=== PATIENT | female | born 1985 | race Caucasian/White ===

== ENCOUNTER 2024-11-06 22:06 | Emergency (ER) | payer MEDICAID ==
[~2024-11-06] VITALS: Ht 165.1 cm; Wt 97.3 kg
[2024-11-07 00:25] LABS: Hepatitis B Surface Antibody Negative (Negative)
[2024-11-07 00:38] LABS: Hepatitis B Surface Antigen Negative (Negative)
--- NOTE | 2024-11-07 02:32 | ED.PDOC ---
History of Present Illness EXP HPI Comments THIS IS A 39-YEAR-OLD FEMALE PATIENT PRESENTS TO THE ED POST EXPOSURE NEEDLE STICK. PATIENT STATES SHE ACTUALLY POKED HERSELF WITH AN INSULIN NEEDLE IN THE TIP OF HER LEFT HAND 4TH DIGIT. HE REPORTS SHE PROMPTLY SQUEEZED IT AND CLEANED IT. SHE DOES NOTE THAT THE PATIENT STATED THAT HE HAS HISTORY OF HEPATITIS-C. HER EMPLOYER IS GETTING PATIENT'S BLOOD WORK. DENIES ANY OTHER SYMPTOMS OR CONCERNS. Chief Complaint: Post Exposure Time Seen by MD: 22:08 Primary Care Provider: CORRINA Reviewed Notes: Nurses Notes, Medications, Allergies Allergies: Coded Allergies: Penicillins (Verified Allergy, Unknown, 11/12/15) Information Source: Patient Mode of Arrival: Ambulatory Past Medical History PAST MEDICAL HISTORY: Denies Surgical History: Denies all surgeries OCCUPATIONAL HEALTH SPECIALIST History: No Pertinent OCCUPATIONAL HEALTH SPECIALIST History Family History Family History: Unobtainable Social History Smoker: Non-Smoker Alcohol: Denies ETOH Use Drugs: Denies Drug Use Lives In: Home Constitutional: denies: chills, diaphoresis, fatigue, fever, malaise, sweats, weakness, others EENTM: denies: blurred vision, double vision, ear bleeding, ear discharge, ear drainage, ear pain, ear ringing, eye pain, eye redness, hearing loss, mouth pain, mouth swelling, nasal discharge, nose bleeding, nose congestion, nose pain, photophobia, tearing, throat pain, throat swelling, voice changes, others Respiratory: denies: cough, hemoptysis, orthopnea, SOB at rest, shortness of breath, SOB with excertion, stridor, wheezing, others Cardiovascular: denies: chest pain, dizzy spells, diaphoresis, Dyspnea on exertion, edema, irregular heart beat, left arm pain, lightheadedness, palpitations, PND, syncope, others Gastrointestinal: denies: abdomen distended, abdominal pain, blood streaked bowels, constipated, diarrhea, dysphagia, difficulty swallowing, hematemesis, melena, nausea, poor appetite, poor fluid intake, rectal bleeding, rectal pain, vomiting, others Genitourinary: denies: abnormal vagina bleeding, burning, dyspareunia, dysuria, flank pain, frequency, hematuria, incontinence, pain, , vagina discharge, urgency, others Neurological: denies: dizziness, fainting, headache, left sided numbness, left sided weakness, numbness, paresthesia, pre-existing deficit, right sided numbness, right sided weakness, seizure, speech problems, tingling, tremors, weakness, others Musculoskeletal: denies: back pain, gout, joint pain, joint swelling, muscle pain, muscle stiffness, neck pain, others Integumetry: reports: wounds (LEFT HAND 4TH INDEX FINGER); denies: bruises, change in color, change in hair/nails, dryness, laceration, lesions, lumps, rash, others Allergic/Immunocompromised: denies: Difficulty Healing, Frequent Infections, Hives, Itching, others Hematologic/Lymphatic: denies: anemia, blood clots, easy bleeding, easy bruising, swollen glands, others Endocrine: denies: excessive hunger, excessive sweating, excessive thirst, excessive urination, flushing, intolerance to cold, intolerance to heat, unexplained weight gain, unexplained weight loss, others Psychiatric: denies: anxiety, bipolar disorder, depression, hopeless, panic disorder, schizophrenia, sleepless, suicidal, others Physical Exam General Appearance: No Apparent Distress, Normal HEENT: Pharynx Normal Neck: Full Range of Motion, Non-Tender Respiratory: Chest Non-Tender, Lungs Clear, No Respiratory Distress, Normal Breath Sounds Cardiovascular: No Murmur, Normal Peripheral Pulses, Regular Rate/Rhythm Breast Exam: Deferred Gastrointestinal: No Organomegaly, Non Tender, No Pulsatile Mass, Normal Bowel Sounds, Soft Genitalia: Deferred Pelvic: Deferred Rectal: Deferred Extremities: Normal capillary refill, Normal inspection, Normal range of motion, Non-tender, No pedal edema Musculoskeletal : Apperance: Normal Neurologic: Alert, student counsellor II-XII nml as Tested, No Motor Deficits, Normal Affect, Normal Mood, No Sensory Deficits Cerebellar Function: Normal Reflexes: Normal Skin: Dry, Normal Color, Warm, Wounds (NO NOTED BLEEDING OR PUNCTURE WOUND TO LEFT HAND 4TH DIGIT.) Lymphatic: No Adenopathy Was a procedure done? Was a procedure done?: No Differential Diagnosis (EXP) Differential Diagnosis: Body fluid exposure, Infect. Disease exposure, Needle stick exposure X-Ray, Labs, Meds, VS Vital Signs Date Time Temp Pulse Resp B/P (MAP) Pulse Ox O2 Delivery O2 Flow Rate FiO2 11/07/24 00:33 65 18 100 Room Air 11/07/24 00:33 98.2 65 18 151/87 (108) 100 98.2 11/06/24 22:15 99.2 77 18 160/92 (114) 98 99.2 Lab Test 11/06/24 23:20 Range/Units Hepatitis B Surface Antigen Negative Negative Hepatitis B Surface Antibody Negative Negative Hepatitis C Antibody Negative Negative HIV (1&2) Antibody Negative Negative X-Ray, Labs, Meds, VS Comment WOUND HEALED. BASELINE LABS ORDERED AND OBTAINED. NEGATIVE EXPOSURE PANEL. PATIENT ADVISED TO FOLLOW UP WITH HER EMPLOYER FOR REPEAT TESTING SCHEDULE. RETURN PRECAUTIONS GIVEN PATIENT INDICATES UNDERSTANDING. Time of 1ST Reevaluation: 00:02 Reevaluation 1ST: Unchanged Patient Education/Counseling: Diagnosis, Treatment, Prognosis, Need For Follow Up Family Education/Counseling: No Family Present Departure 1 Departure Time of Disposition: 02:32 Impression: Primary Impression: Needlestick injury accident with exposure to body fluid Disposition: 01 HOME / SELF CARE / HOMELESS Condition: Stable Discharged With: Self Critical Care Note Critical Care Time?: No Stability Stability form required: NICOL Arthur November 07, 2024 02:32
[2024-11-07 02:57] VITALS: BP 132/88; PULSE 60; RESP 18; TEMP 98.3; O2SAT 97
== END 2024-11-07 03:06 | disposition home or self-care (01) ==
LOC: ER 22:06
DX: S61.205A Unspecified open wound of left ring finger without damage to nail, initial encounter (principal); R06.02 Shortness of breath; Z88.0 Allergy status to penicillin; W46.0XXA Contact with hypodermic needle, initial encounter; Y93.89 Activity, other specified; Y92.89 Other specified places as the place of occurrence of the external cause; Y99.8 Other external cause status
CPT/HCPCS: 36415; 86703; 86706; 86803; 87340